=== PATIENT | female | born 1955 | race Caucasian/White ===

== ENCOUNTER → 2017-08-19 | Outpatient (CLI) | payer OTHER ==
[~2017-08-19] MED LIST: GADOBUTROL 10 ML VIAL IVP ONE
== END ==
LOC: FIMAGING 12:28
PROVIDERS: ATTEND Psychiatry & Neurology Neurology
DX: G37.9 Demyelinating disease of central nervous system, unspecified (principal); G95.89 Other specified diseases of spinal cord; M50.322 Other cervical disc degeneration at C5-C6 level; M50.323 Other cervical disc degeneration at C6-C7 level; M99.71 Connective tissue and disc stenosis of intervertebral foramina of cervical region; G35 Multiple sclerosis; G82.50 Quadriplegia, unspecified
CPT/HCPCS: 72156; A9585

== ENCOUNTER → 2018-05-20 | Outpatient (CLI) | payer OTHER | DX: N31.9 Neuromuscular dysfunction of bladder, unspecified (principal); G35 Multiple sclerosis; Z96.0 Presence of urogenital implants ==

== ENCOUNTER 2019-01-21 10:20 | Observation (INO) | payer OTHER, BC ==
[2019-01-21 11:41] LABS: PLATELET COUNT 264 10^3/uL (150-400)
[2019-01-21] MEDS ORDERED: NS 1,000 ML IV ONE (12:08)
--- NOTE | 2019-01-21 12:08 | EDPHY ---
H & P Stated Complaint: SOB cough chills Time Seen by Provider: 01/21/19 12:08 HPI/ROS: CHIEF COMPLAINT: Fever, cough, shortness of breath HISTORY OF PRESENT ILLNESS: This is a 64 year old female with advanced multiple sclerosis who presents with five days of cough, fever, shortness of breath. Symptoms worsening with time. Her only medication is Baclofen; she has an indwelling catheter. No urinary symptoms. Catheter changed two weeks ago. She notes that she has had worsening UE and LE weakness over the past few days. She is having difficulty coughing up sputum and taking deep breaths. She denies current headache, rash, abdominal pain, diarrhea. No influenza vaccination. REVIEW OF SYSTEMS: A ten system review of systems was performed and is negative with the exception of the items mentioned in the HPI. Past medical history: MS Past surgical history: Noncontributory Social history: She is accompanied by three students, pre med, al of whom work as caregiver for her. She lives independently. Wheelchair bound. General Appearance: Alert. Vital signs reviewed. Heart rate 110, blood pressure 145/92. Eyes: Pupils equal and round, no conjunctival injection, no discharge. Anicteric. ENT, Mouth: Mucous membranes are slightly dry., no oropharyngeal erythema or edema. Neck: No lymphadenopathy, supple. Respiratory: Lungs with rales and rhonchi on the right, clear on the left. Cardiovascular: Tachycardic and regular. Gastrointestinal: Abdomen is soft and nontender, no masses or organomegaly, bowel sounds normal. Skin: Warm and dry, no rashes on exposed skin, normal color. Back: Nontender to palpation over the thoracolumbar spine. No CVAT. Extremities: No lower extremity edema, no calf tenderness or swelling. Neurological: Alert and oriented. Moving all four extremities. Not able to sit up independently in the bed. PERRL. EOMI. Facial expressions symmetric. Tongue midline. Facial sensation intact to light touch. Psychiatric: Normal affect. - Medical/Surgical History Hx Asthma: No Hx Chronic Respiratory Disease: No Hx Diabetes: No Hx Cardiac Disease: No Hx Renal Disease: No Hx Cirrhosis: No Hx Alcoholism: No Hx HIV/AIDS: No Hx Splenectomy or Spleen Trauma: No Other PMH: MS. indwelling catheter - Social History Smoking Status: Never smoked Constitutional: Initial Vital Signs Temperature (C) 37.1 C 01/21/19 10:25 Heart Rate 115 H 01/21/19 10:25 Respiratory Rate 16 01/21/19 10:25 Blood Pressure 153/82 H 01/21/19 10:25 O2 Sat (%) 89 L 01/21/19 10:25 O2 Delivery Mode Room Air Allergies/Adverse Reactions: acetaminophen Allergy (Verified 09/02/16 12:13) severe nausea & vomiting chlorpheniramine Allergy (Verified 09/02/16 12:13) severe nausea & vomiting codeine Allergy (Verified 09/02/16 12:13) Hives dextromethorphan Allergy (Verified 09/02/16 12:13) severe nausea & vomiting diphenhydramine Allergy (Verified 09/02/16 12:13) severe nausea & vomiting doxylamine Allergy (Verified 09/02/16 12:13) severe nausea & vomiting Penicillins Allergy (Verified 09/02/16 12:13) Hives propoxyphene Allergy (Verified 09/02/16 12:13) Rash pseudoephedrine Allergy (Verified 09/02/16 12:13) severe nausea & vomiting sulfanilamide Allergy (Verified 09/02/16 12:13) Rash Home Medications: Medication Instructions Recorded Baclofen [Baclofen 10 mg (*)] 5 mg PO TID 02/28/16 Herbals/Supplements -Info Only 1 ea PO DAILY 02/28/16 Carboxymethylcellulose 1% [Refresh 1 drop EACHEYE DAILY PRN 01/21/19 Celluvisc (*)] Cholecalciferol Vit D3 [Vitamin D3 1,000 units PO DAILY 01/21/19 (*)] Cyanocobalamin [Vitamin B12 (*)] 1,000 mcg PO DAILY 01/21/19 Azithromycin [Zithromax] 500 mg PO DAILY #5 tablet 01/22/19 Cefdinir [Omnicef (*)] 300 mg PO BID #10 cap 01/22/19 Medical Decision Making ED Course/Re-evaluation: 64-year-old female with MS who presents with cough, shortness of breath, fever at home, and worsening muscle weakness. I think that she likely has a pneumonia , based upon my physical examination. This has resulted in MS exacerbation. Because of the MS exacerbation and muscle weakness she is having difficulty taking deep breaths. She was hypoxic with a room air pulse ox 85% on arrival. Oxygenation in the low to mid 90s on 3 L nasal cannula. On review of her chest x-ray think that she has a right lower lobe infiltrate. She will be given antibiotics for community-acquired pneumonia. She meets sepsis criteria on arrival. Her lactate is normal. She was given 1 L IV fluids. She does not have severe sepsis. Admitted to hospitalist service for pulmonary toilet, supplemental oxygen, antibiotics, fluids. Differential Diagnosis: Shortness of breath including but not limited to pulmonary infectious process, COPD, asthma, pulmonary embolus and congestive heart failure. - Data Points Laboratory Results: Laboratory Results 01/21/19 10:45 01/21/19 11:45 Microbiology Results: MICROBIOLOGY 01/21/19 10:45 Blood Blood Culture - Preliminary Medications Given: Discontinued Medications Cholecalciferol (Vitamin D) 1,000 units PO DAILY ALEKSEY Stop: 07/21/19 08:59 Last Admin: 01/22/19 08:03 Dose: 1,000 units Enoxaparin Sodium (Lovenox) 40 mg SC DAILY ALEKSEY Stop: 07/21/19 08:59 Last Admin: 01/22/19 08:01 Dose: Not Given Sodium Chloride (Ns) 1,000 mls @ 0 mls/hr IV EDNOW ONE; Wide Open PRN Reason: Protocol Stop: 01/21/19 12:09 Last Admin: 01/21/19 12:22 Dose: 1,000 mls Sodium Chloride (Ns) 1,000 mls @ 125 mls/hr IV CONT ALEKSEY Stop: 07/20/19 12:29 Last Admin: 01/22/19 04:12 Dose: 1,000 mls Azithromycin 500 mg/ Sodium (Chloride) 255 mls @ 255 mls/hr IV DAILY ALEKSEY PRN Reason: Protocol Stop: 02/20/19 12:59 Last Admin: 01/22/19 11:27 Dose: 255 mls Ceftriaxone Sodium/Dextrose (Rocephin 1 Gm (Premix)) 50 mls @ 100 mls/hr IV DAILY ALEKSEY PRN Reason: Protocol Stop: 02/20/19 12:59 Last Admin: 01/21/19 13:12 Dose: 50 mls Ceftriaxone Sodium/Dextrose (Rocephin 1 Gm (Premix)) 50 mls @ 100 mls/hr IV DAILY ALEKSEY PRN Reason: Protocol Stop: 02/21/19 08:59 Last Admin: 01/22/19 08:03 Dose: 50 mls Ibuprofen (Motrin) 400 mg PO Q6HRS PRN PRN Reason: Pain, Mild Stop: 07/20/19 23:19 Last Admin: 01/22/19 15:54 Dose: 400 mg Ondansetron HCl (Zofran Odt) 4 mg PO Q4HRS PRN PRN Reason: Nausea/Vomiting, Use 1st Stop: 07/20/19 12:29 Last Admin: 01/21/19 14:46 Dose: 4 mg Vitamin B Complex (Vitamin B12) 1,000 mcg PO DAILY ALEKSEY Stop: 07/21/19 08:59 Last Admin: 01/22/19 08:02 Dose: 1,000 mcg Departure - Departure Disposition: [facility] Acute Clinical Impression: Exacerbation of multiple sclerosis Pneumonia Qualifiers: Pneumonia type: due to unspecified organism Laterality: right Lung location: lower lobe of lung Qualified Code(s): J18.1 - Lobar pneumonia, unspecified organism Condition: Fair
[2019-01-21 12:21] LABS: INR 0.99 (0.83-1.16); PROTIME(PATIENT) 12.7 SEC (12.0-15.0)
[2019-01-21] MEDS ORDERED: oxyCODONE IR 5 MG TAB PO PRN (12:30)
[2019-01-21] MEDS ORDERED: ALBUTEROL 3 ML DEYVIAL IH PRN (12:30)
[2019-01-21] MEDS ORDERED: ACETAMINOPHEN 325 MG TAB PO PRN (12:30)
[2019-01-21] MEDS ORDERED: NS 1,000 ML IV SCH (12:30)
[2019-01-21] MEDS ORDERED: ONDANSETRON 4 MG/2 ML VIAL IVP PRN (12:30)
[2019-01-21] MEDS ORDERED: ONDANSETRON DISINTEGRATING 4 MG TAB PO PRN (12:30)
[2019-01-21] MEDS ORDERED: guaiFENesin 600 MG TAB.ER PO PRN (12:53)
[2019-01-21] MEDS ORDERED: guaiFENesin 200 MG TAB PO PRN (12:53)
--- NOTE | 2019-01-21 12:57 | PDGENHP ---
History and Physical - Chief Complaint shortness of breath - History of Present Illness 64yo F with rather advanced MS presents with 4-5 days of worsening shortness of breath. This is associated with cough, although having difficulty bringing up sputum. Her caregivers have also noted low grade fevers. She denies chest pain, leg swelling, rashes. She has a chronic indwelling ceballos that was changed about 2 weeks ago; she hasn't noticed any abnormalities with her urine. She has had very limited appetite and hasn't eaten much. Some nausea but no vomiting or diarrhea. No headaches. She has noticed that she has been weaker than normal - she is unable to stand, which she can normally do. In the ED, she was meeting sepsis criteria. A CXR shows a right middle/lower lobe infiltrate. She was given IVF, blood cultures were drawn and she is being admitted for further management. History Information - Allergies/Home Medication List Allergies/Adverse Reactions: acetaminophen Allergy (Verified 09/02/16 12:13) severe nausea & vomiting chlorpheniramine Allergy (Verified 09/02/16 12:13) severe nausea & vomiting codeine Allergy (Verified 09/02/16 12:13) Hives dextromethorphan Allergy (Verified 09/02/16 12:13) severe nausea & vomiting diphenhydramine Allergy (Verified 09/02/16 12:13) severe nausea & vomiting doxylamine Allergy (Verified 09/02/16 12:13) severe nausea & vomiting Penicillins Allergy (Verified 09/02/16 12:13) Hives propoxyphene Allergy (Verified 09/02/16 12:13) Rash pseudoephedrine Allergy (Verified 09/02/16 12:13) severe nausea & vomiting sulfanilamide Allergy (Verified 09/02/16 12:13) Rash Home Medications: Baclofen 5 mg PO DAILY06 02/28/16 [Last Taken Unknown] Baclofen 5 mg PO DAILY14 02/28/16 [Last Taken Unknown] Baclofen 10 mg PO DAILY20 02/28/16 [Last Taken Unknown] Coq-10 1 cap PO DAILY 02/28/16 [Last Taken Unknown] Herbals/Supplements -Info Only PO DAILY 02/28/16 [Last Taken Unknown] [place]-3 1 cap PO DAILY 02/28/16 [Last Taken Unknown] I have personally reviewed and updated: family history, medical history, surgical history - Past Medical History Additional medical history: advanced multiple sclerosis (wheelchair bound) - Surgical History Additional surgical history: pelvic organ prolapse repair - Family History Positive for: non-pertinent - Social History Smoking Status: Never smoked Alcohol Use: None Drug Use: None Additional social history: Lives locally. Has significant number of caregivers ( 3 are in room). Review of Systems Review of Systems: ROS: 10pt was reviewed & negative except for what was stated in HPI & below Physical Exam Physical Exam: Temp Pulse Resp BP Pulse Ox 37.1 C 112 H 16 145/92 H 95 01/21/19 10:25 01/21/19 12:24 01/21/19 12:24 01/21/19 12:24 01/21/19 12:26 O2 (L/minute) 2 Constitutional: no apparent distress, appears nourished, not in pain Eyes: PERRL, anicteric sclera, EOMI Ears, Nose, Mouth, Throat: moist mucous membranes, hearing normal, ears appear normal, no oral mucosal ulcers Cardiovascular: no murmur, rub, or gallop, tachycardia, No edema Respiratory: no respiratory distress, reduced air movement (right base), rhonchi , No expiratory wheeze, No inspiratory crackles Gastrointestinal: normoactive bowel sounds, soft, non-tender abdomen, no palpable masses Genitourinary: ceballos in urethra Skin: warm, normal color, no rashes or abrasions, no fluctuance, no induration, No mottled Musculoskeletal: generalized weakness Neurologic: AAOx3, CN II-XII Intact, other (unable to lift arms/legs against gravity) Psychiatric: interacting appropriately Lab Data & Imaging Review 01/21/19 10:45 01/21/19 11:45 WBC 12.45 10^3/uL (3.80-9.50) H 01/21/19 10:45 RBC 4.59 10^6/uL (4.18-5.33) 01/21/19 10:45 Hgb 14.4 g/dL (12.6-16.3) 01/21/19 10:45 Hct 43.0 % (38.0-47.0) 01/21/19 10:45 MCV 93.7 fL (81.5-99.8) 01/21/19 10:45 MCH 31.4 pg (27.9-34.1) 01/21/19 10:45 MCHC 33.5 g/dL (32.4-36.7) 01/21/19 10:45 RDW 12.4 % (11.5-15.2) 01/21/19 10:45 Plt Count 264 10^3/uL (150-400) 01/21/19 10:45 MPV 11.0 fL (8.7-11.7) 01/21/19 10:45 Neut % (Auto) 74.9 % (39.3-74.2) H 01/21/19 10:45 Lymph % (Auto) 13.7 % (15.0-45.0) L 01/21/19 10:45 Long % (Auto) 10.8 % (4.5-13.0) 01/21/19 10:45 Eos % (Auto) 0.1 % (0.6-7.6) L 01/21/19 10:45 Baso % (Auto) 0.2 % (0.3-1.7) L 01/21/19 10:45 Nucleat RBC Rel Count 0.0 % (0.0-0.2) 01/21/19 10:45 Absolute Neuts (auto) 9.33 10^3/uL (1.70-6.50) H 01/21/19 10:45 Absolute Lymphs (auto) 1.70 10^3/uL (1.00-3.00) 01/21/19 10:45 Absolute Monos (auto) 1.35 10^3/uL (0.30-0.80) H 01/21/19 10:45 Absolute Eos (auto) 0.01 10^3/uL (0.03-0.40) L 01/21/19 10:45 Absolute Basos (auto) 0.02 10^3/uL (0.02-0.10) 01/21/19 10:45 Absolute Nucleated RBC 0.00 10^3/uL (0-0.01) 01/21/19 10:45 Immature Gran % 0.3 % (0.0-1.1) 01/21/19 10:45 Immature Gran # 0.04 10^3/uL (0.00-0.10) 01/21/19 10:45 PT 12.7 SEC (12.0-15.0) 01/21/19 10:45 INR 0.99 (0.83-1.16) 01/21/19 10:45 APTT 29.5 SEC (23.0-38.0) 01/21/19 10:45 VBG Lactic Acid 1.3 mmol/L (0.7-2.1) 01/21/19 12:40 Sodium 133 mEq/L (135-145) L 01/21/19 11:45 Potassium 4.6 mEq/L (3.5-5.2) 01/21/19 11:45 Chloride 93 mEq/L (97-110) L 01/21/19 11:45 Carbon Dioxide 23 mEq/l (22-31) 01/21/19 11:45 Anion Gap 17 mEq/L (6-14) H 01/21/19 11:45 BUN 10 mg/dL (7-23) 01/21/19 11:45 Creatinine 0.4 mg/dL (0.6-1.0) L 01/21/19 11:45 Estimated GFR > 60 01/21/19 11:45 Glucose 96 mg/dL (70-100) 01/21/19 11:45 Calcium 9.3 mg/dL (8.5-10.4) 01/21/19 11:45 Total Bilirubin 0.8 mg/dL (0.1-1.4) 01/21/19 11:45 Interpretation: CXR: normal heart size, no effusion, right middle/lower lobe infiltrate (reviewed by me) Assessment & Plan Assessment: 64yo F with rather advanced MS presents with 4-5 days of worsening shortness of breath found to have pneumonia. Plan: #Sepsis: Tachycardia, leukocytosis with pulm source. Blood cultures drawn. Antibiotics per below. IVF. #Community acquired pneumonia: Involving right middle/lower lobe. Low risk for resistant organisms. She denies aspiration. Start ceftriaxone 1g q24h (she has tolerated cephalosporins in the past), azithromycin 500mg qd. Respiratory viral panel PCR pending. Cough suppressants prn. #Acute hypoxia: Mild. Wean O2 as able. Pulmonary toilet. #Acute on chronic weakness: Likely pseudoflare of MS in setting of infection. I do not think she needs an MRI of her brain at this time. This should improve with treatment of her infection. #Hypovolemic hyponatremia: Should improve with IVF. #Advanced multiple sclerosis: Wheelchair bound. Numerous caregivers at home. I have ordered PT and OT and will continue her baclofen. She is not on disease modifying therapy for this and is currently transitioning between neurologists at [facility]. VTE ppx: LMWH Code: full Diet: regular Dispo: Admit under observation
[2019-01-21] MEDS ORDERED: cefTRIAXone 1 GM/DEXTROSE 1 GM/50 ML BAG IV ONE (13:10)
[2019-01-21] MEDS: AZITHROMYCIN IV 500 MG in NS 250 ML IV SCH (13:50)
[2019-01-21] MEDS ORDERED: CARBOXYMETHYLCELLULOSE 1% 0.4 ML DROPERETTE EACHEYE PRN (15:58)
[2019-01-21] MEDS: IBUPROFEN 200 MG TAB PO PRN (23:43)
[2019-01-22 05:32] LABS: PLATELET COUNT 229 10^3/uL (150-400)
[2019-01-22] MEDS: IBUPROFEN 200 MG TAB PO PRN ×2 (08:14→15:54)
[2019-01-22] MEDS ORDERED: CYANO/VITAMIN B12 1000 MCG TAB PO SCH (09:00)
[2019-01-22] MEDS ORDERED: ENOXAPARIN 40 MG/0.4 ML SYR SC SCH (09:00)
[2019-01-22] MEDS ORDERED: CHOLECALCIFEROL VIT D3 1,000 UNITS TAB PO SCH (09:00)
[2019-01-22] MEDS: AZITHROMYCIN IV 500 MG in NS 250 ML IV SCH (11:27)
--- NOTE | 2019-01-22 13:58 | ASMTCMCOM ---
CM Note CM Note Notes: 01/22/2019 Case Management Note Pt admitted for increasing cough and shortness of breath in the setting of advancing MS. Pt is wheelchair bound at baseline. Met w/pt and Caregiver Zamzam to discuss d/c needs. Pt lives in her own home and has hired several pre med students as private caregivers. Caregivers are in the home 5 hours in the morning, 3 hours in the afternoon and 2 hours at bedtime. Pt has Aileen near her bed to call neighbors or 911 if needed. Pt has a private unemployment benefits claims taker and outpatient PT who specializes in muscle regeneration. Pt uses [facility] or has her caregivers transport her for errands. Pt refused home care services. Discussed benefits of palliative care. Pt in agreement. Notified RN. Pt emergency contact is her sister Christelle Randolph who resides in [facility] [phone]. Pt is interested in completing advanced directives and MDPOA while in the hospital. Notified RN. Pt PCP is Oriana Hopkins with appointment scheduled in March. Case Management d/c poc: home resuming unskilled care providers. Case management to follow. Date Signed: 01/22/2019 01:56 PM Electronically Signed By:Oriana Matson RN
--- NOTE | 2019-01-22 14:22 | PDDCSUM ---
Discharge Summary Discharge Summary: Date of Admission: 01/21/2019 Date of Discharge: 01/22/2019 Studies: CXR Discharge Diagnoses: 1. Sepsis 2. Community acquired pneumonia 3. Parainfluenza respiratory infection 4. Acute hypoxemic respiratory failure (2L at discharge) 5. Acute on chronic weakness consistent with pseudo MS flare 6. Hypovolemic hyponatremia 7. Advanced multiple sclerosis Brief Hospital Course: 64yo F with rather advanced MS presented with 4-5 days of worsening shortness of breath and cough. Her chest x-ray showed a RLL infiltrate. Respiratory viral panel was + for parainfluenza. She was mildly hypoxic. She was treated for CAP and her sepsis physiology improved. She was still requiring 2L of supplemental oxygen at time of discharge. She should complete 5 more days of antibiotics. I believe her worsening weakness was related to a pseudo-MS flare in the setting of infection and did not think brain MRI was warranted. PT and OT cleared the patient to go home where she has significant help. Medications: Please refer to EMR for complete list. I wrote prescriptions for cefdinir 300mg BID #10 and azithromycin 500mg QD #5 and sent to her pharmacy. Follow Up Plan: PCP visit within 1 week to assess ongoing need for oxygen. Physical Exam: Vitals reviewed, afebrile. Alert and oriented, chronic weakness related to MS, rrr, lungs diminished at right base but without wheezes, abdomen soft and nt, no leg edema, no rashes.
--- NOTE | 2019-01-22 14:47 | PDHOMEO2F ---
Home Oxygen Face to Face Home Orders: I certify that a physician or a nurse practitioner or physician's human resources office assistant has had a [id number] encounter with this patient on the date of this order due to the diagnosis listed, which relates to the primary reason the patient requires home oxygen. Alternative treatments have been tried, or considered, and deemed ineffective. It is anticipated that supplemental oxygen will result in improvement with treatment. Home oxygen qualifying diagnosis: respiratory failure with hypoxia SpO2 on room air (%): 84 Frequency of home oxygen needed: continuous Home oxygen liters per minute: 2 Home oxygen delivery device: nasal cannula Concentrator: Yes E-tanks for mobility and back up: Yes If ordering portable O2, is the patient mobile in the home?: Yes I certify that, based on these findings, the home oxygen is medically necessary for this patient for the following length of time. Length of time home oxygen needed: 99 years
[2019-01-22 15:20] VITALS: BP 107/79
== END 2019-01-22 18:58 | disposition home or self-care (01) ==
LOC: INTOOBSV 12:13 → F3N 14:11
PROVIDERS: ADMIT Internal Medicine; ATTEND Internal Medicine
DX: A41.9 Sepsis, unspecified organism (principal); J18.9 Pneumonia, unspecified organism; J96.01 Acute respiratory failure with hypoxia; J06.9 Acute upper respiratory infection, unspecified; B34.8 Other viral infections of unspecified site; G35 Multiple sclerosis; E87.1 Hypo-osmolality and hyponatremia
CPT/HCPCS: 71046; 92610; 96361; 96365; 96367; 96376; 97162; 97166; 97530; 97535; 99285; G0378; J0456; J0696; J1650